=== PATIENT | female | born 1970 | race Caucasian/White ===

== ENCOUNTER → 2021-10-14 | Outpatient (CLI) | payer BC ==
--- NOTE | 2021-10-14 18:27 | XR ---
EXAMINATION TYPE: XR Hip Complete RT DATE OF EXAM: 10/14/2021 COMPARISON: CT dated 08/07/2010 INDICATION: Right-sided hip pain for 6 to 8 months. TECHNIQUE: Standard 2 views of the right hip. FINDINGS: Unremarkable right hip joint. No definite fracture or dislocation of the right hip. No significant tompkins rrounding soft tissue swelling. Tiny right femoral greater trochanteric enthesophyte. IMPRESSION: As above.
== END | disposition home or self-care (01) ==
LOC: RADXRMAIN 12:17
PROVIDERS: ATTEND Family Medicine
DX: Z12.31 Encounter for screening mammogram for malignant neoplasm of breast (principal); M25.551 Pain in right hip
CPT/HCPCS: 73502